=== PATIENT | female | born 1955 | race Caucasian/White ===

== ENCOUNTER 2020-06-07 13:02 | Emergency (ER) | payer BC ==
[2020-06-07 13:11] VITALS: BP 139/83; PULSE 84; TEMP 98.9; BMI 27.4
== END 2020-06-07 16:00 | disposition home or self-care (01) ==
LOC: JERFT 13:02
DX: M79.10 Myalgia, unspecified site (principal)
CPT/HCPCS: 70450-TC; 73030-TC-RT-FY; 73562-TC-RT-FY; 99284-25